=== PATIENT | female | born 2000 | race Caucasian/White ===

== ENCOUNTER 2023-09-07 05:00 | Emergency (ER) | payer SELFPAY ==
[~2023-09-07] VITALS: Ht 160 cm; Wt 53.0 kg
[2023-09-07 05:21] VITALS: O2SAT 96
[2023-09-07] MEDS ORDERED: LORAZEPAM 2MG/ML INJ IV ONE (05:45)
[2023-09-07 06:09] LABS: BASOPHILS % 0.3 % (0.0-2.0); HEMATOCRIT. 45.7 % (36.0-48.0); HEMOGLOBIN. 15.3 g/dL (12.0-16.0); LYMPHOCYTES % 19.3 % (20.0-50.0); MEAN CORPUSCULAR HEMOGLOBIN 29.2 pg (28.0-32.0); MEAN CORPUSCULAR HGB CONC 33.4 g/dL (31.0-37.0); MEAN CORPUSCULAR VOLUME 87.5 fL (81.0-99.0); MEAN PLATELET VOLUME 8.7 fl (7.4-10.4); MONOCYTES % 4.4 % (2.0-8.0); PLATELET 332 x1000/uL (130-400); RED BLOOD CELL COUNT 5.22 mill/uL (4.2-5.4); RED CELL DISTRIBUTION WIDTH 13.1 % (11.6-14.6)
[2023-09-07 06:17] LABS: CHLORIDE 104 mEq/L (98-107); POTASSIUM 3.7 mEq/L (3.5-5.1); SODIUM 137 mEq/L (136-145)
[2023-09-07 06:18] LABS: CARBON DIOXIDE 16 mEq/L (21-32)
[2023-09-07 06:19] LABS: CALCIUM 11.2 mg/dL (8.7-10.4)
[2023-09-07] MEDS: LORAZEPAM 2MG/ML INJ IV NR (06:19)
[2023-09-07 06:23] LABS: CREATININE 0.8 mg/dL (0.6-1.0); GLUCOSE 119 mg/dL (70-105); TROPONIN I HIGH SENSITIVITY 18 ng/L (3.0-34); UREA NITROGEN BLOOD 7 mg/dL (9-23)
[2023-09-07] MEDS: SODIUM CHLORIDE 0.9% 1,000 ML IV ONE (06:23)
[2023-09-07 06:27] LABS: ETHANOL BLOOD < 10 mg/dL (<10); THYROID STIMULATING HORMONE 2.66 uIU/mL (0.55-4.78)
[2023-09-07 06:28] LABS: T4 FREE 1.82 ng/dL (0.89-1.76)
[2023-09-07 06:43] LABS: HCG SCREEN NEGATIVE
[2023-09-07 06:46] LABS: D-DIMER < 0.19 mg/L FEU (<0.50); PARTIAL THROMBOPLASTIN TIME 27.3 sec (23.4-31.0); PROTHROMBIN TIME 11.2 sec (9.6-11.0)
[2023-09-07 06:58] LABS: CLARITY URINE CLEAR (CLEAR); COLOR URINE YELLOW (YELLOW); GLUCOSE URINE NEGATIVE (NEGATIVE); KETONES URINE 1+ (NEGATIVE); LEUKOCYTE ESTERASE URINE TRACE (NEGATIVE); NITRITE URINE NEGATIVE (NEGATIVE); OCCULT BLOOD URINE NEGATIVE (NEGATIVE); PROTEIN URINE NEGATIVE (NEGATIVE); SPECIFIC GRAVITY URINE 1.003 (1.005-1.030); UROBILINOGEN URINE 0.2 E.U./dL (0.2-1.0)
[2023-09-07 07:12] LABS: SQUAMOUS EPITHELIAL CELL URINE FEW /lpf (RARE/1+)
[2023-09-07 07:14] LABS: BACTERIA URINE NONE SEEN; RBC URINE 0-2 /hpf (0-2); WBC URINE 0-2 /hpf (0-2)
[2023-09-07] MEDS ORDERED: FAMO-135 MT (07:33)
[2023-09-07] MEDS: FAMOTIDINE 20MG/2ML VIAL IV ONE (07:46)
[2023-09-07] MEDS: MAGNESIUM/ALUMINUM HYDROXIDE/SIMETHICONE 30ML UDC PO ONE (07:47)
[2023-09-07] MEDS: ACETAMINOPHEN 325MG TABLET PO ONE (07:47)
[2023-09-07 07:52] VITALS: BP 119/89; PULSE 85; RESP 14; TEMP 98.6
== END 2023-09-07 08:03 | disposition home or self-care (01) ==
LOC: ER 05:00
DX: R00.2 Palpitations (principal); R06.02 Shortness of breath; R07.9 Chest pain, unspecified
CPT/HCPCS: 80048; 81003; 80320; 84703; 83880; 84439; 83690; 84443; 85025; 85379; 85610; 85730; 84484; 36415; 71045; 93005; 96361; 96374; 99285; J2060; J7030; G0480